=== PATIENT | female | born 1995 | race African-American/Black ===

== ENCOUNTER 2023-10-24 11:10 | Inpatient (IN) | payer SELFPAY ==
[2023-10-24 14:51] VITALS: BMI 28.8
[2023-10-26 12:57] VITALS: BP 116/79; TEMP 98.1
== END 2023-10-26 16:30 | disposition home or self-care (01) | DRG 869 ==
LOC: INTOOBSV 13:18 → SURG B 13:18 → OBSVTOIN 10-25 16:53
PROVIDERS: ADMIT Student in an Organized Health Care Education/Training Program; ATTEND Family Medicine
DX: A51.9 Early syphilis, unspecified (principal); L29.9 Pruritus, unspecified; A53.9 Syphilis, unspecified; R74.01 Elevation of levels of liver transaminase levels; K76.0 Fatty (change of) liver, not elsewhere classified; E80.6 Other disorders of bilirubin metabolism; Z79.899 Other long term (current) drug therapy
CPT/HCPCS: 36415; 74181; 76705; 80053; 80076; 82105; 82390; 82525; 82728; 82787; 82977; 83516; 83540; 83550; 83690; 85025; 85610; 85730; 86037; 86038; 86225; 86593; 86664; 86665; 86780; 87389; 87491; 87497; 87517; 87591; 96374; G0378; J0561; J1200